=== PATIENT | male | born 1945 | race Caucasian/White ===

== ENCOUNTER → 2019-07-20 | Outpatient (CLI) | payer OTHER ==
[~2019-07-20] MED LIST: AMITIZA 24 MCG24 MCG PO; CELEBREX400 MG PO; ERYTHROMYCIN E3.5 G1 OPHTHALMIC; GLUCOPHAGE1000 MG PO; HUMIRA20 MG/0.4; NEXIUM20 M1; ZOCOR 10 MG TAB10 MG PO
== END ==
LOC: ULTRA 12:06
DX: R22.43 Localized swelling, mass and lump, lower limb, bilateral (principal)

== ENCOUNTER 2020-01-11 17:44 | Inpatient (IN) | payer OTHER ==
[~2020-01-11] VITALS: Ht 177.8 cm; Wt 84.4 kg
[2020-01-11 17:51] VITALS: BP 112/66
[2020-01-11 18:41] LABS: URINE BILIRUBIN NEGATIVE (Negative); URINE BLOOD 3+ (Negative); URINE CLARITY CLOUDY; URINE COLOR YELLOW; URINE GLUCOSE-RANDOM* NEGATIVE (Negative); URINE KETONES TRACE (Negative); URINE NITRITE-REFLEX NEGATIVE (Negative); URINE PROTEIN (DIPSTICK) 2+ (Negative); URINE SPECIFIC GRAVITY 1.025 (1.005-1.035)
[2020-01-11 18:42] LABS: HEMATOCRIT 35.5 % (42.0-52.0); HEMOGLOBIN 12.2 gm/dL (14.0-18.0); MCH 33.2 pg (26.0-34.0); MCHC 34.4 g/dL (28.0-37.0); MCV 96.5 fL (80.0-100.0); PLATELET COUNT 215 thou/uL (150-400); RBC 3.68 mil/uL (4.50-6.00); RDW 13.3 % (10.5-14.5); WBC 7.5 thou/uL (4.0-11.0)
[2020-01-11 18:46] LABS: URINE LEUKOCYTES-REFLEX 2+ (Negative)
[2020-01-11 18:49] LABS: CALCIUM 8.5 mg/dL (8.5-10.1); CREATININE 1.1 mg/dL (0.7-1.3); POTASSIUM 5.1 mmol/L (3.5-5.1)
[2020-01-11 18:54] LABS: ALBUMIN 2.3 g/dL (3.4-5.0); TOTAL BILIRUBIN 0.6 mg/dL (0.2-1.0); TOTAL PROTEIN 6.5 g/dL (6.4-8.2)
[2020-01-11 19:07] LABS: PLATELET ESTIMATE NORMAL
[2020-01-11 19:10] LABS: BACTERIA-REFLEX >30 Many /HPF (None Seen); CASTS None Seen /LPF (None Seen); CRYSTALS None Seen /LPF (None Seen); SQUAMOUS 0-3 Few /LPF (0-3); URINE RBC 3-10 Few /HPF (0-2); URINE WBC-REFLEX >25 Many /HPF (0-5)
[2020-01-11] MEDS ORDERED: NORVASC5 MG PO (19:46)
[2020-01-11] MEDS ORDERED: NEURONTIN 300M300 M2 PO (19:46)
[2020-01-11] MEDS ORDERED: TAMSULOSIN HCL0.4 MG PO (19:46)
[2020-01-11] MEDS ORDERED: LINZESS145 MCG PO (19:46)
[2020-01-11] MEDS ORDERED: TRESIBA FL100 UNIT/1 (19:47)
[2020-01-11] MEDS ORDERED: PROTONIX40 M2 PO (19:47)
[2020-01-11] MEDS ORDERED: TRADJENTA5 MG (19:47)
[2020-01-11] MEDS ORDERED: TRAZODONE HCL100 MG PO (19:48)
[2020-01-11] MEDS ORDERED: PRAVACHOL 20 MG20 M1 PO (19:48)
[2020-01-11 20:45] VITALS: BP 131/65
[2020-01-11 21:57] VITALS: BP 129/62
[2020-01-11 23:59] VITALS: BP 125/55
--- NOTE | 2020-01-12 00:29 | NUR ---
ADMISSION ASSESSMENT COMPLETED. PT IS ABLE TO ANSWER ADMISSION QUESTIONS. C/O PAIN TO FEET AND PENIS. CATHETER HAS BLOOD TINGED URINE. PT DENIES SOA OR COUGH.L OUTER ANKLE SURGICAL INCISION SITE WITH [id number]-ON S/SX OF INFECTION AT THE SITE.FALL EDUCATION PROVIDED, PRECAUTIONS IN PLACE, CALL LIGHT WITHIN REACH.
[2020-01-12 04:47] VITALS: BP 128/71
--- NOTE | 2020-01-12 06:36 | NUR ---
I AGREE ON THE DOCUMENTATION DONE BY Mayur EASLEY LPN
[2020-01-12 07:20] VITALS: BP 95/35
[2020-01-12 07:40] VITALS: BP 114/69
--- NOTE | 2020-01-12 12:06 | HC ---
[facility] [place] [address] CONSULTATION Name: LAWSON LAM Room #: 434-P ADM IN ..#: [id number] Admission: 01/11/20 Attend Phys: Alexandro Godinez MD Discharge: Date of : 47 Report #: [id number] THIS REPORT FOR: cc: Mehrdad Izaguirre Gerald F. DO Barry, Joseph W. MD ~ DATE OF SERVICE: 01/12/2020 INFECTIOUS DISEASE CONSULTATION ATTENDING PHYSICIAN: Dr. Godinez. REASON FOR EVALUATION: Complicated urinary tract infection. HISTORY OF SUBJECTIVE: Chart reviewed, patient examined. This is a 74-year-old gentleman who was admitted through the Emergency Room with complaints of pain associated with the indwelling Yoon catheter, history starts roughly 2-3 weeks ago, had sustained a fall, described a left distal tib-fib fracture, underwent repair. Postop course, he was having difficulty voiding and a urine catheter was placed. He was found to have urinary tract infection, treated with ceftriaxone I believe and then transition to cephalexin. He was discharged and readmitted. He does have ongoing pain, although he is fairly animated. He denies any pulmonary complaints or GI. He admits to chills, although he is not certain he had fevers. I evaluated and noted urinalysis with greater than 25 white cells, greater than 30 bacteria. Empirically placed on ceftriaxone, awaiting culture results. ALLERGIES: LISTED TO PROPOXYPHENE, IODINE, CODEINE, ACETAMINOPHEN. CURRENT MEDICATIONS: Include ceftriaxone, trazodone, amlodipine, atorvastatin, gabapentin, tamsulosin, insulin, famotidine, enoxaparin, p.r.n. analgesics and antiemetics. PAST MEDICAL HISTORY: Includes diabetes mellitus, history of hypertension, hyperlipidemia, history of chronic pancreatitis, ETOH abuse, reflux, chronic back pain, seizures, spinal stenosis. SOCIAL HISTORY: Former smoker. No illicit drug use. FAMILY HISTORY: Noncontributory. REVIEW OF SYSTEMS: Otherwise, unremarkable. PHYSICAL EXAMINATION: [facility] [address] [place] [address] CONSULTATION Name: LAWSON LAM Room #: 434-P [facility] IN ..#: [id number] Admission: 01/11/20 Attend Phys: Alexandro Godinez MD Discharge: Date of : 47 Report #: [id number] GENERAL: He is animated, alert, cooperative, in [id number]-mb-fcyfwhie distress at times, appears to be reasonably well nourished. VITAL SIGNS: Temperature 97.8, pulse 78, respirations 18, blood pressure 114/69. SKIN: Warm, dry, no rashes. HEENT: Otherwise, unremarkable. NECK: Supple. LUNGS: Clear to auscultation bilaterally. HEART: Regular. I do not appreciate murmur. ABDOMEN: Mildly distended, soft. There is some tenderness initially, although on repeat, he denied any. He notes there is tenderness over the perineal site. GENITOURINARY AND RECTAL: Deferred. LABORATORY DATA: Electrolytes: Sodium 135, potassium 5.1, chloride 102, bicarbonate 24, anion gap of 9, BUN and creatinine 15 and 1.1, glucose of 184, SGOT of 72, SGPT of 30. Albumin of 2.3. Total protein 6.5. Estimated GFR 66. Otherwise, LFTs unremarkable. CBC: White count of 7.5, H and H 12.2 and 35.5, platelets of 215. Urinalysis described above. ASSESSMENT AND PLAN: Complicated urinary tract infection. The patient apparently requires indwelling catheter due to inability to void. We will await culture results. Ceftriaxone seems reasonable given the fact that he has been on it previously and seemed to respond to it based on the history. We will make 1 transition ideally perhaps to oral antibiotics in the next 2-3 days. At this point, he is not overtly toxic, monitor expectantly. Add incentive spirometry. <ELECTRONICALLY SIGNED> By: Johnathan Schuster MD 01/12/20 1206 [id number] Johnathan Schuster MD /nt
[2020-01-12 14:47] VITALS: BP 107/61; BP 173/87
--- NOTE | 2020-01-12 17:33 | NUR ---
Assumed care of pt. at 0700. Pt. was calm and cooperative. Dr. Godinez requested that the neal catheter be removed. Pt. was concered that he could not urinate 3 hours after removal. Bladder scan conducted, 92mL seen. Pt. calmed. Fall precautions in place.
[2020-01-12 22:35] VITALS: BP 136/72
--- NOTE | 2020-01-12 23:51 | NUR ---
ASSUMED PT CARE AT AROUND 2000 HRS. PT IS ALERT AND ORIENTED WITH FORGETFULNESS AND SOME CONFUSION. OBSERVED IN BED.PT DENIES PAIN.HS MEDS GIVEN. AFEBRILE. IVF RESTARTED TO L HAND.PT SO FAR HAS NOT VOIDED. BLADDER SCAN AT 2300 WITH 376 CC. URINAL PROVIDED WELL PITCHER OF FRESH WATER. WILL GIVE PATIENT TIME AND CHANCE TO VOID. PT DENIES ANY URGE TO URINATE OR ANY DISCOMFORT IN GENERAL.REPORT GIVEN TO LYRIC MACIAS @6306 HRS.
--- NOTE | 2020-01-13 06:28 | NUR ---
ASSUMED PT CARE AFTER 2300. PT RESTING IN BED AT THAT TIME WITHOUT INTERRUPTION OR OBSERVATION OF PAIN, DISCOMFORT, OR SOB. PT AWAKENED FOR TOILETING NEEDS, OBSERVED WITHOUT GOWN PER PREFERENCE TO BE NAKED. PT AMBULATES WITH LLE BOOT, WALKER, AND X1 ASSIST TO BEDSIDE COMMODE. PT OBSERVED WITHOUT IV ACCESS AT TIME OF TOILETING. PT REPORTS REMOVING IV DUE TO URGENCY TO USE BATHROOM. PT REQUESTING TO DISCONTINUE IV SITE AND IV MEDICATIONS, PROVIDED REASSURANCE TO PT THAT REQUEST WILL BE COMMUNICATED TO DOCTOR FOR DETERMINATION OF MEDICATION PROFILE. PT REFUSING NEW IV SITE PLACEMENT. PT TOLERATING PO INTAKE OF FLUIDS AND HEART HEALTHY DIET WITHOUT ISSUE. PT ENCOURAGED TO NOTIFY STAFF FOR ALL NEEDS, CALL LIGHT WITHIN REACH, BED ALARM ON, BED IN LOWEST POSITION, FREQUENT MONITORING WILL CONTINUE.
[2020-01-13 08:11] VITALS: BP 149/81
--- NOTE | 2020-01-13 09:03 | NUR ---
[facility] contacted me thismorning to let CM know that they cannot accept him back into their care because he needs a higher level of care now.
--- NOTE | 2020-01-13 13:40 | NUR ---
Nutrition: Pt admit with UTI, pain. RD received consult stating malnutrition-physician diagnosed-will defer. Initial risk for poor intake, weight loss. PMH: Dm, HTN, ETOH. galley worker consult for possible need for placement/frequent falls. Tolerating diet although not happy with some choices. RD obtained food preferences and instructed on ordering meals. Pt was happy for this option. Reports 100% intake of breakfast this am but lunch was "too fancy". BG 98-228. Hx DM. Pt would like to D/C heart healthy diet restriction-defer to physician discretion but would rec adding Carb controlled to assist with BG control. Pt denies weight loss stating current weight is UBW. Offer ensure daily due to suboptimal intake at times/hx ETOH. Low risk otherwise.
--- NOTE | 2020-01-13 14:21 | NUR ---
TRIED TO REACH PT BY PHONE NO ANSWER & TRIED CALLING BRITTANY OTOOLE & LEFT MESSAGE FOR HER TO CALL, BUT OF THIS WRITING NO RETURN CALL. PT USING A CAM WALKER & FRONT WHEELED WALKER, WALKED 60 FEET WITH THERAPY THIS AM. PER NURSING THEY RECEIVED A CALL FROM [facility] THIS AM & THEY WILL NOT ACCEPT PT BACK.
--- NOTE | 2020-01-13 15:07 | NUR ---
Assumed care of pt. at 0700. Per night nurse Reny MACIAS, pt. removed IV overnight and refused to have one reinserted. Dr. Godinez alerted and said it was okay to leave it out. Pt. was able to void but was found to have >276mL post void via bladder scan. Dr. Godinez ordered neal be placed. Once inserted, 1500 mL of urine filled neal bag. Redness around groin area noted, Dr. Godinez ordered nyastatin powder be used BID. Fall precautions in place.
[2020-01-13 16:03] VITALS: BP 115/65
[2020-01-13 19:30] VITALS: BP 120/72
[2020-01-13 22:32] VITALS: BP 120/72
[2020-01-14 07:50] VITALS: BP 111/56
--- NOTE | 2020-01-14 08:58 | NUR ---
PT AOX4 WITH INTERMITTENT FORGETFULNESS. PT DENIES PAIN AND SOB WHILE ON ROOM AIR. PT HAS PRN PO TRAMADOL AVAILABLE. PT DENIES NAUSEA. PT TOLERATING PO INTAKE OF FLUIDS AND HEART HEALTHY DIET. PT RESTING IN BED THROUGHOUT SHIFT, NOTED TO SHIFT INDEPENDENTLY WHILE IN BED. PT MAINTAINS GONZALEZ CATHETER, CATHETER PATENT. PT ENCOURAGED TO NOTIFY STAFF FOR ALL NEEDS, CALL LIGHT WITHIN REACH, BED ALARM ON, BED IN LOWEST POSITION, FREQUENT MONITORING WILL CONTINUE.
[2020-01-14 15:13] VITALS: BP 117/65
--- NOTE | 2020-01-14 15:20 | NUR ---
Assumed care of pt. at 0700. Pt. is calm and cooperative. Pt. complained of being constipated, Dr. Godinez ordered Mag Citrate and it was given. No results yielded from Mg. Was alerted by CM that [facility] will not accept him back d/t his noncompliance of care given his last time with them, he reportedly refuse to comply and threw away given medications. Fall precautions in place.
[2020-01-14 19:13] VITALS: BP 119/65
--- NOTE | 2020-01-15 02:57 | NUR ---
PT WAS OBSRVED TO BE NAKED ON HIS BED AT THE START OF SHIFT.PT STATED THAT HE DOESN'T WANT TO PUT HIS GOWN BACK ON WHEN ENCOURAGED TO DO SO.PT STATED THAT HE WOULD PREFER THE COVERS WHILE IN BED.PT DENIED PAIN,N/V SO FAR.GONZALEZ CATH TO DD WITH YELLOW URINE NOTED IN THE BAG.PER REPORT,PT WITH NO IV ACCESS.NYSTAINN POWDER TO THE REDNESS IN HIS PANNUS.PT ENCOURAGED TO USE THE INCENTIVE SPIROMETER.EDEMA TO HIS MICKY ANKELS,L GREATER THAT THE R.LLE SUTEURES INTACT WITH STERI STRIPS.PT RESTING ON HIS BED AT THIS TIME.CALL LIGHT WITHIN REACH.
[2020-01-15 06:51] VITALS: BP 144/85
[2020-01-15] MEDS ORDERED: LEVOFLOXACIN500 MG PO (09:03)
--- NOTE | 2020-01-15 11:36 | NUR ---
Assumed care of pt at 0700. Pt follows directions. Provider states pt can go home. Previous home health agency will not take patient back. Talked to director case. New home health agency can see pt on tuesday 01/16. Will call doctor and to ask if ok to discharge patient today. Pt will discharge with Yoon catheter. Pt states he has a ride. Call light within reach. Fall precautions in place. Will continue to monitor.
[2020-01-15 15:40] VITALS: BP 130/71
[2020-01-15 15:58] VITALS: BP 130/71
--- NOTE | 2020-01-16 03:05 | NUR ---
PT DISCHARGED AT 2039 TO HOME VIA WHEELCHAIR VAN.
--- NOTE | 2020-01-16 12:38 | NUR ---
PT DISCHARGED TO HOME WITH HH OVER WEEKEND FAXED REFERRAL TO [facility] SPOKE WITH [facility] THEY CAN ACCEPT. FAXED DC ORDERS/SUMMARY RECEIVED CONFIRMATION AND THEY WILL CALL TO ARRANGE VISITS. I NOTIFIED PT WITH INFORMATION ABOUT THE HH THAT WILL BE CALLING.
== END 2020-01-15 20:40 | disposition home health service (06) | DRG 698 ==
LOC: ER 17:44 → EROBS 19:59 → 4S 19:59
PROVIDERS: Emergency Medicine; ADMIT Hospitalist; ATTEND Hospitalist
DX: T83.518A Infection and inflammatory reaction due to other urinary catheter, initial encounter (principal); E43 Unspecified severe protein-calorie malnutrition; N39.0 Urinary tract infection, site not specified; E46 Unspecified protein-calorie malnutrition; K86.0 Alcohol-induced chronic pancreatitis; R62.7 Adult failure to thrive; F41.9 Anxiety disorder, unspecified; K58.9 Irritable bowel syndrome, unspecified; F10.21 Alcohol dependence, in remission; E78.5 Hyperlipidemia, unspecified; K21.9 Gastro-esophageal reflux disease without esophagitis; G89.29 Other chronic pain; G40.909 Epilepsy, unspecified, not intractable, without status epilepticus; I10 Essential (primary) hypertension; E11.9 Type 2 diabetes mellitus without complications; Y83.8 Other surgical procedures as the cause of abnormal reaction of the patient, or of later complication, without mention of misadventure at the time of the procedure; B96.20 Unspecified Escherichia coli [E. coli] as the cause of diseases classified elsewhere; Y92.89 Other specified places as the place of occurrence of the external cause; Z87.891 Personal history of nicotine dependence; Z79.4 Long term (current) use of insulin; Z79.899 Other long term (current) drug therapy; Z88.5 Allergy status to narcotic agent; Z88.8 Allergy status to other drugs, medicaments and biological substances; Z91.041 Radiographic dye allergy status; Z68.26 Body mass index [BMI] 26.0-26.9, adult
CPT/HCPCS: 10102

== ENCOUNTER 2020-01-24 11:50 | Observation (INO) | payer OTHER ==
[~2020-01-24] VITALS: Ht 177.8 cm; Wt 79.8 kg
[~2020-01-24 11:50] MED LIST changes: +LEVOFLOXACIN500 MG PO; +LINZESS145 MCG PO; +NEURONTIN 300M300 M2 PO; +NORVASC5 MG PO; +PRAVACHOL 20 MG20 M1 PO; +PROTONIX40 M2 PO; +TAMSULOSIN HCL0.4 MG PO; +TRADJENTA5 MG; +TRAZODONE HCL100 MG PO; +TRESIBA FL100 UNIT/1
[2020-01-24 11:51] VITALS: BP 113/62
--- NOTE | 2020-01-24 12:43 | EKG ---
[facility] [place] [place] [address] ELECTROCARDIOGRAM REPORT Name: LAWSON LAM Room #: [facility]#: [id number] Admission: 01/24/20 Attend Phys: Discharge: Date of : 47 Report #: [id number] THIS REPORT FOR: cc: NIHARIKA Schultz family physician/PCP NIHARIKA Schultz family physician/PCP Jerome Hensley MD [facility] ~ THIS REPORT FOR: //name// [facility] ED Test Date: 2020-01-24 Test Time: 12:00:47 Pat Name: LAWSON LAM Department: Room: Gender: M Easement Worker: ROQUE : 1945 Requested By: Fredrick Sylvester Order Number: [id number] MD: Jerome Hensley Measurements Intervals [place] Rate: 83 P: -1 [place]: 202 QRS: -14 QRSD: 101 T: 33 QT: 377 QTc: 443 Interpretive Statements Sinus rhythm Abnormal R-wave progression, early transition 1 AVB Compared to ECG 07/03/2005 22:40:11 Sinus bradycardia no longer present Electronically Signed On 01-24-2020 12:43:05 EXHAUST EMISSIONS INSPECTOR by Jerome Hensley [email or web address] <ELECTRONICALLY SIGNED> By: Jerome Hensley MD, FACC 01/24/20 1243 1200 1200 Jerome Hensley MD, [facility] /EPI
[2020-01-24 13:32] LABS: HEMATOCRIT 41.7 % (42.0-52.0); HEMOGLOBIN 13.6 gm/dL (14.0-18.0); MCH 32.2 pg (26.0-34.0); MCHC 32.6 g/dL (28.0-37.0); MCV 98.7 fL (80.0-100.0); PLATELET COUNT 211 thou/uL (150-400); RBC 4.23 mil/uL (4.50-6.00); RDW 14.1 % (10.5-14.5); WBC 9.1 thou/uL (4.0-11.0)
[2020-01-24 14:12] LABS: ABSOLUTE NEUTROPHILS 6.6 thou/uL (1.4-8.2); PLATELET ESTIMATE NORMAL
[2020-01-24 15:09] LABS: ANION GAP 9 mmol/L (7-16); BUN 9 mg/dL (7-18); CHLORIDE 102 mmol/L (98-107); CO2 25 mmol/L (21-32); CREATININE 1.3 mg/dL (0.7-1.3); GLUCOSE 169 mg/dL (74-106); POTASSIUM 4.3 mmol/L (3.5-5.1); SODIUM 136 mmol/L (136-145); TROPONIN-I <0.06 ng/mL (<0.06)
[2020-01-24 15:13] LABS: CALCIUM 9.8 mg/dL (8.5-10.1)
[2020-01-24 16:56] LABS: CHOLESTEROL 131 mg/dL (<200); HDL CHOLESTEROL 41 mg/dL (>40); LDL CHOLESTEROL 71 mg/dL (<100); TC:HDL 3.2 Ratio (Not establshd); TRIGLYCERIDE 96 mg/dL (<150); VLDL 19 mg/dL (<40)
[2020-01-24 17:09] VITALS: BP 111/62
[2020-01-24 17:38] VITALS: BP 96/68
[2020-01-24 17:59] VITALS: BP 120/58
[2020-01-24 21:15] VITALS: BP 141/65
[2020-01-25] VITALS (8 sets, daily range): BP systolic 93–125; BP diastolic 52–73
[2020-01-25 04:48] LABS: CALCIUM 8.7 mg/dL (8.5-10.1); CREATININE 1.2 mg/dL (0.7-1.3); MAGNESIUM 1.8 mg/dL (1.8-2.4); POTASSIUM 3.8 mmol/L (3.5-5.1)
[2020-01-25 04:55] LABS: HEMATOCRIT 36.8 % (42.0-52.0); HEMOGLOBIN 12.1 gm/dL (14.0-18.0); MCH 32.1 pg (26.0-34.0); MCHC 32.9 g/dL (28.0-37.0); MCV 97.7 fL (80.0-100.0); PLATELET COUNT 217 thou/uL (150-400); RBC 3.77 mil/uL (4.50-6.00); RDW 13.8 % (10.5-14.5); WBC 6.9 thou/uL (4.0-11.0)
--- NOTE | 2020-01-25 06:21 | NUR ---
PATIENT IS COOPERATIVE BUT FORGETFUL AND A LITTLE CONFUSED AT TIMES. PATIENT CAN ANSWER MOST QUESTIONS APPROPRIATELY HOWEVER HAS TROUBLE REMEMBERING HE IS IN THE HOSPITAL. PATIENT IS VERY UNSTEADY ON FEET AND GRABS FOR FURNITURE. PATIENT'S LEG BAG REPLAED BY A FULL SIZE GONZALEZ BAG. NO SKIN WOUNDS NOTED.
[2020-01-25 10:24] LABS: ABSOLUTE NEUTROPHILS 3.2 thou/uL (1.4-8.2); ATYPICAL LYMPHS 3 %
[2020-01-25 10:25] LABS: ANISOCYTOSIS SLIGHT; POIKILOCYTOSIS SLIGHT
--- NOTE | 2020-01-25 12:56 | NUR ---
I have reviewed the documentation by KELECHI DIAZ from 01/25/20 to 01/25/20 and I concur with it. BETTY GODDARD, PT, DPT
--- NOTE | 2020-01-25 13:10 | 2DMMODE ---
[facility] [place] [address] 2 D/M-MODE ECHOCARDIOGRAM Name: LAWSON LAM Room #: 210-P ADM IN M.R.#: [id number] Admission: 01/24/20 Attend Phys: Fabrizio Yung MD Discharge: Date of : 46 Report #: [id number] THIS REPORT FOR: cc: FAM - No family physician/PCP FAM - No family physician/PCP Jerome Hensley MD [facility] ~ APPROVED REPORT Study performed: 01/25/2020 10:49:06 EXAM: Comprehensive 2D, Doppler, and color-flow Echocardiogram Patient Location: Bedside Room #: 210 Status: routine BSA: 1.98 HR: 74 bpm BP: 120/52 mmHg Rhythm: NSR Other Information Study Quality: Good Indications Diabetes Syncope Hypertension/HDD 2D Dimensions RVDd: 30.87 mm IVSd: 10.35 (7-11mm) LVOT Diam: 21.94 (18-24mm) LVDd: 48.48 mm PWd: 9.51 (7-11mm) Ascending Ao: 35.89 (22-36mm) LVDs: 38.37 (25-40mm) Aortic Root: 27.38 mm Volumes Left Atrial Volume (Systole) Single Plane 4CH: 30.19 mL Single Plane 2CH: 39.80 mL LA ESV Index: 19.00 mL/m2 Aortic Valve AoV Peak Koffi.: 1.12 m/s AO Peak Gr.: 5.03 mmHg LVOT Max P.38 mmHg LVOT Max V: 0.92 m/s [facility] [email or web address] [place] [address] 2 D/M-MODE ECHOCARDIOGRAM Name: LAWSON LAM Room #: 210-P ADM IN M.R.#: [id number] Admission: 01/24/20 Attend Phys: Fabrizio Yung MD Discharge: Date of : 47 Report #: [id number] COSME Vmax: 3.10 cm2 Mitral Valve E/A Ratio: 0.8 MV Decel. Time: 310.47 ms MV E Max Koffi.: 0.64 m/s MV A Koffi.: 0.80 m/s MV PHT: 90.04 ms IVRT: 106.11 ms Pulmonary Valve PV Peak Koffi.: 1.20 m/s PV Peak Gr.: 5.73 mmHg Pulmonary Vein P Vein S: 0.49 m/s P Vein A: 0.23 m/s P Vein D: 0.30 m/s P Vein A Dur.: 179.9 msec P Vein S/D Ratio: 1.63 Tricuspid Valve TR Peak Koffi.: 2.27 m/s TR Peak Gr.: 20.55 mmHg PA Pressure: 20.00 mmHg Left Ventricle The left ventricle is normal size. There is normal LV segmental wall motion. There is normal left ventricular wall thickness. The left ventricular systolic function is normal. The left ventricular ejection fraction is within the normal range. LVEF is 55-60%. Grade I - abnormal relaxation pattern. Right Ventricle The right ventricle is normal size. The right ventricular systolic function is normal. Atria The left atrium size is normal. The right atrium size is normal. Aortic Valve The aortic valve is normal in structure. No aortic regurgitation is present. There is no aortic valvular stenosis. Mitral Valve The mitral valve is normal in structure. Trace mitral regurgitation. No evidence of mitral valve stenosis. [facility] [address] [place] [address] 2 D/M-MODE ECHOCARDIOGRAM Name: LAWSON LAM Room #: 210-P ADM IN M.R.#: [id number] Admission: 01/24/20 Attend Phys: Fabrizio Yung MD Discharge: Date of : 47 Report #: [id number] Tricuspid Valve The tricuspid valve is normal in structure. There is trace to mild tricuspid regurgitation. Estimated PAP 20 mmHg. Plus the right atrial pressure. There is no pulmonary hypertension. Pulmonic Valve The pulmonary valve is normal in structure. There is no pulmonic valvular regurgitation. Great Vessels The aortic root is normal in size. IVC is not well visualized. Pericardium There is no pericardial effusion. <Conclusion> Difficult study Normal left ventricular size and thickness Ejection fraction estimated at 55% Grade 1 diastolic dysfunction Normal right ventricular size and function Normal atrial size Normal aortic valve structure and function Trace mitral valve insufficiency Trace tricuspid valve insufficiency PA pressure systolic estimated 20 mmHg No pericardial effusion <ELECTRONICALLY SIGNED> By: Jerome Hensley MD, FACC 01/25/201309 09 09 Jerome Hensley MD, FACC /INF
--- NOTE | 2020-01-25 17:57 | NUR ---
Case opened to follow for dc planning. Pt is a&ox4 but slow to respond at times. He indicates that he went out to the Urology office regarding his neal and urinary retention and had syncopal episode. He has been recieving HH since his dc on 01/15/20 but he can not recall the agency name. He had [facility] in the past but they could not accept him back. Per pt request, message left for his girlfriend Mariajose requesting she look at his HH folder to get the agency name. He has a cam walker at home. His girlfriend is very involved and supportive. She does work but is available after hours. He denies any other dc need or concerns. Will follow along for resumption of hh at dc.
--- NOTE | 2020-01-25 18:25 | NUR ---
PT ALERT AND ORIENTED. PLEASANT AND COOPERATIVE WITH CARES. HAD NUC STRESS TEST THIS SHIFT. DENIED HAVING PAIN OR DISCOMFORT. NO CONCERNS AT THIS TIME.
[2020-01-26 04:48] VITALS: BP 118/72
[2020-01-26 07:46] VITALS: BP 128/65; BP 146/74; BP 98/60
--- NOTE | 2020-01-26 10:35 | NUR ---
WOUND CONSULT; ALERT, COOPERATIVE, STATES ULCER ON L HEEL HAS BEEN THERE A "FEW WEEKS" DRY BROWN ESCHAR, NO DRAINAGE, NO S/S INFECTION, TRACE EDEMA, FEET WARM, PLANNING DC TODAY W/ HOME HEALTH SERVICES, REVIEWED CARE, WILL ORDER PRAFO BOOTS PRIOR TO DC AND TO F/U W/ WOUND DR BRANDY STARK IF NOT IMPROVING, PHONE # GIVEN TO PT RECOMMENDATIONS; PRAFO BOOTS WHEN IN BED, PRESSURE RELIEF, WEAR SHOES LITTLE POSSIBLE, PAINT ULCER W/ BETADINE DAILY , F/U W/ WOUND IF NO IMPROVEMENT SEEN CONVEYOR CONSOLE OPERATOR AWARE
[2020-01-26 10:39] VITALS: BP 117/64
--- NOTE | 2020-01-26 10:40 | NUR ---
Pt dcing home today with HH orders. DC planning confirming that [facility] is the current provider and that they can accept him back for readmission. [facility] declined him at last dc in December due to concerns that he needs more care and help at home. Will ask [facility] to add an CURRICULUM DESIGNER visit to their orders and encourage the pt/ girlfriend to consider private duty or HBCS request [place]icaid.
--- NOTE | 2020-01-26 10:42 | NUR ---
WOUND CARE ADDENDUM; L HEEL ULCER MEASURES 2CM X 2CM, NO DRAINAGE, NO S/S INFECION, DRY BROWN ESCHAR PERSONAL BANKER AWARE
[2020-01-26 10:43] VITALS: BP 117/64
--- NOTE | 2020-01-26 11:13 | NUR ---
FAXED REFERRAL TO [facility] FOR RESUMPTION OF CARE AT DISCHARGE SPOKE WITH [facility] IN INTAKE THEY WILL RESUME CARE PT TO DC TODAY.
[2020-01-26 11:25] VITALS: BP 105/81
[2020-01-26 11:57] VITALS: BP 117/64
--- NOTE | 2020-01-26 16:17 | NUR ---
I have reviewed the documentation by MAURA ROBERT from 01/26/20 to 01/26/20 and I concur with it. TARYN SAUNDERS
--- NOTE | 2020-01-26 16:46 | NUR ---
PT WAS EDUCATED ON DISCHARGE PAPERWORK, REGARDING FOLLOW UP APPOINTMENTS. PT FRIEND WAS ALSO PRESENT DURING EDUCATION. PT UNDERSTANDS THE NEED TO FOLLOW UP WITH CARDIOLOGY, UROLOGY, AND HIS HCP. PT ALSO RECEIVED INFORMATION REGARDING WOUND CARE AND FOLLOW UP FOR L HEEL WOUND. ANIA IGLESIAS SENT HOME WITH PT. PRIMARY PHYSICIAN LIST ATTACHED TO PAPERWORK PER PT REQUEST.
== END 2020-01-26 16:50 | disposition home health service, planned readmission (86) ==
LOC: ER 11:50 → 2N 15:42 → EROBS 15:42 → 2N 15:42 → EROBS 16:01 → 2N 17:48
PROVIDERS: Nurse Practitioner; ADMIT Internal Medicine; ATTEND Internal Medicine
DX: R55 Syncope and collapse (principal); I10 Essential (primary) hypertension; E78.5 Hyperlipidemia, unspecified; E11.9 Type 2 diabetes mellitus without complications; G40.909 Epilepsy, unspecified, not intractable, without status epilepticus; K21.9 Gastro-esophageal reflux disease without esophagitis; M48.00 Spinal stenosis, site unspecified; N39.0 Urinary tract infection, site not specified; K58.9 Irritable bowel syndrome, unspecified; F17.210 Nicotine dependence, cigarettes, uncomplicated; R33.9 Retention of urine, unspecified; R53.81 Other malaise; Z20.828 Contact with and (suspected) exposure to other viral communicable diseases; Z98.890 Other specified postprocedural states
CPT/HCPCS: 10081

== ENCOUNTER 2020-05-29 14:46 | Inpatient (IN) | payer OTHER ==
[~2020-05-29] VITALS: Ht 177.8 cm; Wt 82.5 kg
--- NOTE | ~2020-05-29 | HC ---
[facility] [place] [address] CONSULTATION Name: LAWSON LAM Room #: 447-P [facility] IN ..#: [id number] Admission: 05/29/20 Attend Phys: Hesham Castanon MD Discharge: Date of : 47 Report #: [id number] THIS REPORT FOR: cc: Mehrdad Izaguirre Gerald F. DO Stephens, Thad A. MD ~ DATE OF SERVICE: 05/30/2020 WOUND CARE CONSULTATION PRIMARY PHYSICIAN: Mehrdad Izaguirre DO. CHIEF COMPLAINT: Diabetic foot ulcer. HISTORY OF PRESENT ILLNESS: This is a 75-year-old white male who I saw in clinic yesterday as a new patient for a chronic ulceration on the plantar aspect of his right foot. The patient states it has been present for at least 3 weeks and getting progressively worse. The patient started having purulent drainage in the past week, he saw Dr. Izaguirre who requested he be admitted; however, at that time, the patient refused. The patient when seen yesterday in the clinic, I had a long talk about infection progressed, he might require amputation. At that time, he decided he will go ahead and be admitted for IV antibiotics and further workup. The patient has significant neuropathy in his feet and says he has minimal pain. The patient denies any other associated wounds. The patient has had a longstanding history of Charcot arthropathy. The patient also is currently on Enbrel for his rheumatoid arthritis. PAST MEDICAL HISTORY: Significant for rheumatoid arthritis, history of pancreatitis, hyperlipidemia, diabetes mellitus, hypertension, irritable bowel syndrome, anxiety. DRUG ALLERGIES: DARVOCET. SOCIAL HISTORY: The patient has no history of smoking; however, has a history of alcohol, supposedly significant alcohol use in the past. REVIEW OF SYSTEMS: CONSTITUTIONAL: The patient denies fevers or chills. NEUROLOGIC: The patient complains of mild generalized weakness, but no isolated weakness in arms or legs. EYES: No complaints. ENT: No complaints. CARDIAC: The patient denies chest pain, palpitations, peripheral edema. RESPIRATORY: The patient denies shortness of breath, cough or wheezes. GASTROINTESTINAL: The patient denies nausea, vomiting, abdominal pain. [facility] [address] [place] [address] CONSULTATION Name: LAWSON LAM Room #: 447-P [facility] IN [facility].#: [id number] Admission: 05/29/20 Attend Phys: Hesham Castanon MD Discharge: Date of : 47 Report #: [id number] GENITOURINARY: The patient denies urgency or frequency. MUSCULOSKELETAL: No complaints. SKIN: The patient has a chronic ulcer on the plantar aspect of his right foot. PHYSICAL EXAMINATION: VITAL SIGNS: Stable. The patient is afebrile. GENERAL: This is an alert and oriented x 3, pleasant white male who is in no obvious distress. HEENT: Normocephalic, atraumatic. Mucous membranes are somewhat dry. Pupils are round. Sclerae white. NECK: Without JVD. LUNGS: Clear. HEART: Regular. ABDOMEN: Soft, nontender. EXTREMITIES: The patient moves all extremities without difficulty. The patient has 1+ dorsalis pedis and posterior tibial pulses. There is trace edema in bilateral lower extremities. Evaluation of the plantar aspect of right foot reveals what appears to be a chronic ulcer with peripheral callus that probes approximately 1 cm. There is no evidence of any obvious exposed bone or deeper structures. There is foul smelling drainage, which is serosanguineous in nature. There are no signs of any other associated ulcerations. NEUROLOGIC: Cranial nerves 2-12 grossly intact. Motor and sensory grossly intact. LABORATORY DATA: White count 6.7, hemoglobin 13.5. Sed rate 29, BUN 19, creatinine 1.0. C-reactive protein is 31.7. Albumin 3.1. X-ray of the right foot shows a small erosion along the lateral aspect of the distal fifth metatarsal. No other signs of any other acute pathology. IMPRESSION: 1. Chronic ulcer, plantar aspect of right foot with associated cellulitis and soft tissue infection. 2. Diabetes mellitus -- poorly controlled. 3. Protein-calorie malnutrition -- moderate albumin at 3.1. 4. Generalized debility. PLAN: Infectious Disease has been consulted. We will start him on IV antibiotics. I have requested arterial Dopplers to be performed as well as an MRI of the right foot to evaluate for underlying osteomyelitis. Pending the results of the above, further consultation for possible debridement will be [address] [address] CONSULTATION Name: LAWSON LAM Room #: 447-P [facility] IN M.R.#: [id number] Admission: 05/29/20 Attend Phys: Hesham Castanon MD Discharge: Date of : 47 Report #: [id number] warranted. We will continue to follow the patient. We will continue all other current medications. By: [id number] [id number] Omar Shearer MD /nt
[2020-05-29 14:46] VITALS: BP 156/92
[~2020-05-29 14:46] MED LIST changes: -ENBREL50 MG/1 ML SUBQ
[2020-05-29 17:04] LABS: ABSOLUTE NEUTROPHILS 6.4 thou/uL (1.4-8.2); BASOPHILS 0.8 % (0.0-2.0); EOSINOPHILS 2.9 % (0.0-3.0); HEMATOCRIT 44.5 % (42.0-52.0); HEMOGLOBIN 15.3 gm/dL (14.0-18.0); LYMPHOCYTES 17.4 % (24.0-44.0); MCH 32.9 pg (26.0-34.0); MCHC 34.4 g/dL (28.0-37.0); MCV 95.6 fL (80.0-100.0); MONOCYTES 14.5 % (1.0-8.0); PLATELET COUNT 237 thou/uL (150-400); POLYS 64.4 % (36.0-66.0); RBC 4.65 mil/uL (4.50-6.00); RDW 14.8 % (10.5-14.5); WBC 9.9 thou/uL (4.0-11.0)
[2020-05-29 17:15] LABS: CALCIUM 9.9 mg/dL (8.5-10.1); CREATININE 0.9 mg/dL (0.7-1.3); POTASSIUM 4.9 mmol/L (3.5-5.1)
[2020-05-29 17:19] VITALS: BP 156/92
[2020-05-29 17:19] LABS: ALBUMIN 3.1 g/dL (3.4-5.0); TOTAL BILIRUBIN 0.6 mg/dL (0.2-1.0); TOTAL PROTEIN 7.9 g/dL (6.4-8.2)
[2020-05-29 17:38] VITALS: BP 156/92
[2020-05-29] MEDS ORDERED: ENBREL50 MG/1 ML SUBQ (17:42)
[2020-05-29 17:44] VITALS: BP 156/92
[2020-05-29 18:26] VITALS: BP 148/86
[2020-05-29 19:22] VITALS: BP 156/86
[2020-05-30 04:42] VITALS: BP 124/75
[2020-05-30 05:20] LABS: HEMATOCRIT 39.9 % (42.0-52.0); HEMOGLOBIN 13.5 gm/dL (14.0-18.0); MCH 32.5 pg (26.0-34.0); MCHC 33.8 g/dL (28.0-37.0); MCV 96.2 fL (80.0-100.0); RBC 4.15 mil/uL (4.50-6.00); RDW 14.7 % (10.5-14.5); WBC 6.7 thou/uL (4.0-11.0)
--- NOTE | 2020-05-30 05:21 | NUR ---
RECEIVED CARE OF THIS PATIENT AT 1900. PATIENT ALERT AND ORIENTED X4. UP TO BATHROOM WITH SBA. DENIES PAIN. ACCUCHECK WAS 236, RECIEVED 4 UNIT LISPRO INSULIN. SLEPT OFF AND ON DURING NIGHT.
[2020-05-30 06:18] LABS: POTASSIUM 4.5 mmol/L (3.5-5.1)
[2020-05-30 07:05] VITALS: BP 103/72
[2020-05-30 07:30] VITALS: BP 103/72
--- NOTE | 2020-05-30 11:20 | NUR ---
Pt prefers to be called Chaplain Pretty. Admit with right foot wound infection, hx DM, Charcot foot. States appetite is now good. Lives alone and uses [employer] dinners, talent program manager meals plus 3 glucerna shakes. Reports had lost about 22 lb from Nov-Jan with surgeries and hospitalizations. Pt feels bedscale wt 181 lb error, states he has stabilized at 172 lb on home scale for several months now. Not happy with some of meals. Reviewed menu for alternative selection option and will start glucerna shakes bid. Low nutrition risk with appropriate nutrition interventions in place.
--- NOTE | 2020-05-30 14:40 | NUR ---
ASSUMED PT CARE AROUND 0700. PT ALERT X ORIENTED X 4. ON ROOM AIR.IV RT HAND, ANTIBIOTICS GOING. STAND BY ASST. FALL PRECAUTION IN PLACE. CALL LIGHT IN REACH. WILL CALL APPROPRIATELY. MRI FOOT SCHEDULED TODAY AFTERNOON. WORKED WITH PT AND OT.WILL CONTINUE TO MONITOR.
[2020-05-30 15:56] VITALS: BP 118/74
[2020-05-30 19:05] VITALS: BP 122/68
[2020-05-31 05:38] VITALS: BP 119/67
[2020-05-31 07:49] VITALS: BP 121/81
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
--- NOTE | 2020-05-31 15:58 | NUR ---
ASSESSMENT: CM REVIEWED CHART AND SPOKE WITH PATIENT. PT REPORTS THAT HE LIVES IN A HOME ALONE WITH HIS DOGS. PT REPORTS HAVING NO STEPS TO ENTER OR ONCE INSIDE. PT REPORTS TAHT HE HAS A WALK IN BATHTUB. PT REPORTS HE HAS A CANE AND WALKER AT HOME IF NEEDED. PT STATES HE IS CURRENTLY IN SERVICES WITH [facility]. CM CONTACTED [facility] TO VERIFY AND FAXED INFORMATION. THEY WILL ACCEPT HIM BACK ON SERVICES AT DISCHARGE. PT REPORTS HE ALSO HAS A CAREGIVER THAT COMES EVERY M/W/FRI FROM [employer] TO ASSIST HIM NEEDED. PT IS CURRENTLY ON IV ANBX AND AWAITING CULTURES. CM WILL CONTINUE TO FOLLOW TO ASSIST NEEDED.
[2020-05-31 16:49] VITALS: BP 119/70
[2020-05-31 19:30] VITALS: BP 125/82
--- NOTE | 2020-06-01 04:00 | NUR ---
PT ALERT AND ORIENTED. CONTINUES ON IV ABTS AWAITING WOUND CULTURES. PT ANXIOUS ABOUT GOING HOME.EDUCATION PROVIDED.
[2020-06-01 07:40] VITALS: BP 98/53
[2020-06-01 07:50] VITALS: BP 98/53
--- NOTE | 2020-06-01 12:04 | NUR ---
ASSUMED PT CARE AROUND 0720. PT ALERT X ORIENTED X4. ON ROOM AIR. STAND BY ASST. USES URINALS. IV RT HAND, SALINE LOCKED AND ANTIBIOTICS RUNNING.ACCUCHECK, ACHS.NO C/O PAIN. WAITING FOR WOUND CULTURE RESULT. FALL PRECATION IN PLACE. CALL LIGHT IN REACH. WILL CALL APPROPRIATELY. WILL CONTINUE TO MONITOR.
[2020-06-01 15:11] VITALS: BP 98/53
--- NOTE | 2020-06-01 15:31 | NUR ---
ON-GOING ASSESSMENT: CM REVIEWED CHART AND SPOKE WITH ATTENDING. AWAITING CULTURES AND PT REMAINS ON IV ANBX. LIKELY HOME WITH HOME HEALTH OVER THE WEEKEND. FAX DICSHARGE ORDERS AT TIME OF DISCHARGE TO [facility] [phone]. CM NOTIFIED [facility] OF LIKELY WEEKEND DISCHARGE.
[2020-06-01] MEDS ORDERED: DOXYCYCLINE HYC50 MG PO ×2 (16:15→17:36)
[2020-06-01] MEDS ORDERED: NORVASC5 MG PO ×2 (16:19→17:36)
[2020-06-01 17:17] VITALS: BP 98/53
== END 2020-06-01 17:41 | disposition home health service (06) | DRG 638 ==
LOC: ER 14:46 → EROBS 17:09 → 4S 17:09
PROVIDERS: Emergency Medicine; ADMIT Hospitalist; ATTEND Hospitalist
DX: E11.621 Type 2 diabetes mellitus with foot ulcer (principal); E44.0 Moderate protein-calorie malnutrition; L97.319 Non-pressure chronic ulcer of right ankle with unspecified severity; L03.115 Cellulitis of right lower limb; I10 Essential (primary) hypertension; E11.610 Type 2 diabetes mellitus with diabetic neuropathic arthropathy; E78.5 Hyperlipidemia, unspecified; F41.9 Anxiety disorder, unspecified; M06.9 Rheumatoid arthritis, unspecified; R53.81 Other malaise; K58.9 Irritable bowel syndrome, unspecified; Z60.2 Problems related to living alone; S91.301A Unspecified open wound, right foot, initial encounter; R29.6 Repeated falls; K21.9 Gastro-esophageal reflux disease without esophagitis; Z88.8 Allergy status to other drugs, medicaments and biological substances; Z88.6 Allergy status to analgesic agent; Z91.041 Radiographic dye allergy status; Z87.891 Personal history of nicotine dependence; Z68.26 Body mass index [BMI] 26.0-26.9, adult; X58.XXXA Exposure to other specified factors, initial encounter; Y93.89 Activity, other specified; Y92.89 Other specified places as the place of occurrence of the external cause; Y99.8 Other external cause status; Z20.822 Contact with and (suspected) exposure to COVID-19
CPT/HCPCS: 10195

== ENCOUNTER → 2020-05-29 | Outpatient (CLI) | payer OTHER ==
[~2020-05-29] MED LIST changes: +ENBREL50 MG/1 ML SUBQ
== END ==
LOC: HYPER 11:31
PROVIDERS: ATTEND Emergency Medicine
DX: E11.621 Type 2 diabetes mellitus with foot ulcer (principal); L97.512 Non-pressure chronic ulcer of other part of right foot with fat layer exposed; E11.40 Type 2 diabetes mellitus with diabetic neuropathy, unspecified; E11.610 Type 2 diabetes mellitus with diabetic neuropathic arthropathy; L84 Corns and callosities; M54.5 Low back pain; L40.50 Arthropathic psoriasis, unspecified; M19.079 Primary osteoarthritis, unspecified ankle and foot; M51.37 Other intervertebral disc degeneration, lumbosacral region; D69.6 Thrombocytopenia, unspecified; M06.9 Rheumatoid arthritis, unspecified; K58.9 Irritable bowel syndrome, unspecified; J44.9 Chronic obstructive pulmonary disease, unspecified; E78.5 Hyperlipidemia, unspecified; M48.00 Spinal stenosis, site unspecified; K21.9 Gastro-esophageal reflux disease without esophagitis; M10.9 Gout, unspecified; K85.90 Acute pancreatitis without necrosis or infection, unspecified; F41.1 Generalized anxiety disorder; F43.10 Post-traumatic stress disorder, unspecified; F17.290 Nicotine dependence, other tobacco product, uncomplicated; F10.20 Alcohol dependence, uncomplicated; Z79.4 Long term (current) use of insulin; Z79.899 Other long term (current) drug therapy; Z96.641 Presence of right artificial hip joint

== ENCOUNTER → 2020-06-26 | Outpatient (CLI) | payer OTHER ==
[~2020-06-26] MED LIST changes: +DOXYCYCLINE HYC50 MG PO; +ENBREL50 MG/1 ML SUBQ
== END ==
LOC: HYPER 07:48
PROVIDERS: ATTEND Specialist
DX: E11.621 Type 2 diabetes mellitus with foot ulcer (principal); L97.412 Non-pressure chronic ulcer of right heel and midfoot with fat layer exposed; L84 Corns and callosities; L08.9 Local infection of the skin and subcutaneous tissue, unspecified; E11.40 Type 2 diabetes mellitus with diabetic neuropathy, unspecified; E11.610 Type 2 diabetes mellitus with diabetic neuropathic arthropathy; M54.5 Low back pain; L40.50 Arthropathic psoriasis, unspecified; M19.079 Primary osteoarthritis, unspecified ankle and foot; M51.37 Other intervertebral disc degeneration, lumbosacral region; D69.6 Thrombocytopenia, unspecified; M06.9 Rheumatoid arthritis, unspecified; K58.9 Irritable bowel syndrome, unspecified; J44.9 Chronic obstructive pulmonary disease, unspecified; E78.5 Hyperlipidemia, unspecified; M48.00 Spinal stenosis, site unspecified; K21.9 Gastro-esophageal reflux disease without esophagitis; M10.9 Gout, unspecified; K85.90 Acute pancreatitis without necrosis or infection, unspecified; F41.1 Generalized anxiety disorder; F43.10 Post-traumatic stress disorder, unspecified; F17.290 Nicotine dependence, other tobacco product, uncomplicated; F10.20 Alcohol dependence, uncomplicated; Z79.4 Long term (current) use of insulin; Z96.641 Presence of right artificial hip joint

== ENCOUNTER → 2020-07-24 | Outpatient (CLI) | payer OTHER | LOC: HYPER 07:46 | PROVIDERS: ATTEND Specialist | DX: E11.621 Type 2 diabetes mellitus with foot ulcer (principal); L97.412 Non-pressure chronic ulcer of right heel and midfoot with fat layer exposed; L84 Corns and callosities; L08.9 Local infection of the skin and subcutaneous tissue, unspecified; E11.40 Type 2 diabetes mellitus with diabetic neuropathy, unspecified; E11.610 Type 2 diabetes mellitus with diabetic neuropathic arthropathy; L40.50 Arthropathic psoriasis, unspecified; D69.6 Thrombocytopenia, unspecified; J44.9 Chronic obstructive pulmonary disease, unspecified; E78.5 Hyperlipidemia, unspecified; K21.9 Gastro-esophageal reflux disease without esophagitis; K22.70 Barrett's esophagus without dysplasia; M54.5 Low back pain; M19.079 Primary osteoarthritis, unspecified ankle and foot; M51.37 Other intervertebral disc degeneration, lumbosacral region; M06.9 Rheumatoid arthritis, unspecified; M48.00 Spinal stenosis, site unspecified; M10.9 Gout, unspecified; F41.1 Generalized anxiety disorder; F43.10 Post-traumatic stress disorder, unspecified; F17.290 Nicotine dependence, other tobacco product, uncomplicated; F10.20 Alcohol dependence, uncomplicated; Z79.4 Long term (current) use of insulin; Z96.641 Presence of right artificial hip joint ==

== ENCOUNTER → 2020-08-07 | Outpatient (CLI) | payer OTHER | LOC: HYPER 07:56 | PROVIDERS: ATTEND Specialist | DX: E11.621 Type 2 diabetes mellitus with foot ulcer (principal); L97.512 Non-pressure chronic ulcer of other part of right foot with fat layer exposed; E11.610 Type 2 diabetes mellitus with diabetic neuropathic arthropathy; E11.40 Type 2 diabetes mellitus with diabetic neuropathy, unspecified; M54.5 Low back pain; M19.079 Primary osteoarthritis, unspecified ankle and foot; L84 Corns and callosities; M06.9 Rheumatoid arthritis, unspecified; L40.50 Arthropathic psoriasis, unspecified; M51.37 Other intervertebral disc degeneration, lumbosacral region; D69.6 Thrombocytopenia, unspecified; K58.9 Irritable bowel syndrome, unspecified; E78.5 Hyperlipidemia, unspecified; M48.00 Spinal stenosis, site unspecified; J44.9 Chronic obstructive pulmonary disease, unspecified; K21.9 Gastro-esophageal reflux disease without esophagitis; M10.9 Gout, unspecified; F17.200 Nicotine dependence, unspecified, uncomplicated; F10.20 Alcohol dependence, uncomplicated; F41.1 Generalized anxiety disorder; F43.10 Post-traumatic stress disorder, unspecified; Z79.4 Long term (current) use of insulin; Z79.899 Other long term (current) drug therapy ==

== ENCOUNTER → 2020-08-28 | Outpatient (CLI) | payer OTHER | LOC: HYPER 08:00 | PROVIDERS: ATTEND Specialist | DX: E11.621 Type 2 diabetes mellitus with foot ulcer (principal); L97.512 Non-pressure chronic ulcer of other part of right foot with fat layer exposed; E11.610 Type 2 diabetes mellitus with diabetic neuropathic arthropathy; E11.40 Type 2 diabetes mellitus with diabetic neuropathy, unspecified; M54.5 Low back pain; M19.079 Primary osteoarthritis, unspecified ankle and foot; L84 Corns and callosities; L40.50 Arthropathic psoriasis, unspecified; M51.37 Other intervertebral disc degeneration, lumbosacral region; D69.6 Thrombocytopenia, unspecified; K58.9 Irritable bowel syndrome, unspecified; E78.5 Hyperlipidemia, unspecified; J44.9 Chronic obstructive pulmonary disease, unspecified; K21.9 Gastro-esophageal reflux disease without esophagitis; M48.00 Spinal stenosis, site unspecified; M06.9 Rheumatoid arthritis, unspecified; M10.9 Gout, unspecified; F17.200 Nicotine dependence, unspecified, uncomplicated; F10.20 Alcohol dependence, uncomplicated; F41.1 Generalized anxiety disorder; F43.10 Post-traumatic stress disorder, unspecified; Z79.4 Long term (current) use of insulin ==

== ENCOUNTER → 2020-09-25 | Outpatient (CLI) | payer OTHER | LOC: HYPER 07:41 | PROVIDERS: ATTEND Specialist | DX: E11.621 Type 2 diabetes mellitus with foot ulcer (principal); L97.412 Non-pressure chronic ulcer of right heel and midfoot with fat layer exposed; L08.9 Local infection of the skin and subcutaneous tissue, unspecified; E11.610 Type 2 diabetes mellitus with diabetic neuropathic arthropathy; E11.40 Type 2 diabetes mellitus with diabetic neuropathy, unspecified; M54.5 Low back pain; M19.079 Primary osteoarthritis, unspecified ankle and foot; L84 Corns and callosities; L40.50 Arthropathic psoriasis, unspecified; M51.37 Other intervertebral disc degeneration, lumbosacral region; D69.6 Thrombocytopenia, unspecified; K58.9 Irritable bowel syndrome, unspecified; E78.5 Hyperlipidemia, unspecified; J44.9 Chronic obstructive pulmonary disease, unspecified; K21.9 Gastro-esophageal reflux disease without esophagitis; M48.00 Spinal stenosis, site unspecified; M06.9 Rheumatoid arthritis, unspecified; M10.9 Gout, unspecified; F17.200 Nicotine dependence, unspecified, uncomplicated; F10.20 Alcohol dependence, uncomplicated; F41.1 Generalized anxiety disorder; F43.10 Post-traumatic stress disorder, unspecified; Z79.4 Long term (current) use of insulin ==

== ENCOUNTER → 2020-10-09 | Outpatient (CLI) | payer OTHER | LOC: HYPER 07:59 | PROVIDERS: ATTEND Specialist | DX: E11.621 Type 2 diabetes mellitus with foot ulcer (principal); L97.412 Non-pressure chronic ulcer of right heel and midfoot with fat layer exposed; L97.521 Non-pressure chronic ulcer of other part of left foot limited to breakdown of skin; L84 Corns and callosities; L08.9 Local infection of the skin and subcutaneous tissue, unspecified; L40.50 Arthropathic psoriasis, unspecified; E11.610 Type 2 diabetes mellitus with diabetic neuropathic arthropathy; E11.40 Type 2 diabetes mellitus with diabetic neuropathy, unspecified; D69.6 Thrombocytopenia, unspecified; E78.5 Hyperlipidemia, unspecified; J44.9 Chronic obstructive pulmonary disease, unspecified; K58.9 Irritable bowel syndrome, unspecified; K21.9 Gastro-esophageal reflux disease without esophagitis; M54.5 Low back pain; M19.079 Primary osteoarthritis, unspecified ankle and foot; M51.37 Other intervertebral disc degeneration, lumbosacral region; M48.00 Spinal stenosis, site unspecified; M06.9 Rheumatoid arthritis, unspecified; M10.9 Gout, unspecified; F17.200 Nicotine dependence, unspecified, uncomplicated; F10.20 Alcohol dependence, uncomplicated; F41.1 Generalized anxiety disorder; F43.10 Post-traumatic stress disorder, unspecified; Z79.4 Long term (current) use of insulin ==

== ENCOUNTER → 2020-10-30 | Outpatient (CLI) | payer MEDICARE, OTHER | LOC: HYPER 07:53 | PROVIDERS: ATTEND Specialist | DX: E11.621 Type 2 diabetes mellitus with foot ulcer (principal); L97.412 Non-pressure chronic ulcer of right heel and midfoot with fat layer exposed; L97.521 Non-pressure chronic ulcer of other part of left foot limited to breakdown of skin; L84 Corns and callosities; L08.9 Local infection of the skin and subcutaneous tissue, unspecified; L40.50 Arthropathic psoriasis, unspecified; E11.610 Type 2 diabetes mellitus with diabetic neuropathic arthropathy; E11.40 Type 2 diabetes mellitus with diabetic neuropathy, unspecified; D69.6 Thrombocytopenia, unspecified; E78.5 Hyperlipidemia, unspecified; J44.9 Chronic obstructive pulmonary disease, unspecified; K58.9 Irritable bowel syndrome, unspecified; K21.9 Gastro-esophageal reflux disease without esophagitis; M54.5 Low back pain; M19.079 Primary osteoarthritis, unspecified ankle and foot; M51.37 Other intervertebral disc degeneration, lumbosacral region; M48.00 Spinal stenosis, site unspecified; M06.9 Rheumatoid arthritis, unspecified; M10.9 Gout, unspecified; F17.200 Nicotine dependence, unspecified, uncomplicated; F10.20 Alcohol dependence, uncomplicated; F41.1 Generalized anxiety disorder; F43.10 Post-traumatic stress disorder, unspecified; Z79.4 Long term (current) use of insulin ==

== ENCOUNTER → 2020-11-13 | Outpatient (CLI) | payer MEDICARE, OTHER | LOC: HYPER 08:03 | PROVIDERS: ATTEND Specialist | DX: E11.621 Type 2 diabetes mellitus with foot ulcer (principal); L97.412 Non-pressure chronic ulcer of right heel and midfoot with fat layer exposed; L97.521 Non-pressure chronic ulcer of other part of left foot limited to breakdown of skin; L84 Corns and callosities; L08.9 Local infection of the skin and subcutaneous tissue, unspecified; L40.50 Arthropathic psoriasis, unspecified; E11.610 Type 2 diabetes mellitus with diabetic neuropathic arthropathy; E11.40 Type 2 diabetes mellitus with diabetic neuropathy, unspecified; D69.6 Thrombocytopenia, unspecified; E78.5 Hyperlipidemia, unspecified; J44.9 Chronic obstructive pulmonary disease, unspecified; K58.9 Irritable bowel syndrome, unspecified; K21.9 Gastro-esophageal reflux disease without esophagitis; M54.5 Low back pain; M19.079 Primary osteoarthritis, unspecified ankle and foot; M51.37 Other intervertebral disc degeneration, lumbosacral region; M48.00 Spinal stenosis, site unspecified; M06.9 Rheumatoid arthritis, unspecified; M10.9 Gout, unspecified; F17.200 Nicotine dependence, unspecified, uncomplicated; F10.20 Alcohol dependence, uncomplicated; F41.1 Generalized anxiety disorder; F43.10 Post-traumatic stress disorder, unspecified; Z79.4 Long term (current) use of insulin ==

== ENCOUNTER → 2020-11-27 | Outpatient (CLI) | payer OTHER | LOC: HYPER 07:44 | PROVIDERS: ATTEND Specialist | DX: E11.621 Type 2 diabetes mellitus with foot ulcer (principal); L97.412 Non-pressure chronic ulcer of right heel and midfoot with fat layer exposed; L97.521 Non-pressure chronic ulcer of other part of left foot limited to breakdown of skin; L84 Corns and callosities; L08.9 Local infection of the skin and subcutaneous tissue, unspecified; L40.50 Arthropathic psoriasis, unspecified; L23.7 Allergic contact dermatitis due to plants, except food; R21 Rash and other nonspecific skin eruption; B36.9 Superficial mycosis, unspecified; E11.610 Type 2 diabetes mellitus with diabetic neuropathic arthropathy; E11.40 Type 2 diabetes mellitus with diabetic neuropathy, unspecified; D69.6 Thrombocytopenia, unspecified; E78.5 Hyperlipidemia, unspecified; J44.9 Chronic obstructive pulmonary disease, unspecified; K58.9 Irritable bowel syndrome, unspecified; K21.9 Gastro-esophageal reflux disease without esophagitis; M54.50 Low back pain, unspecified; M19.079 Primary osteoarthritis, unspecified ankle and foot; M51.37 Other intervertebral disc degeneration, lumbosacral region; M48.00 Spinal stenosis, site unspecified; M06.9 Rheumatoid arthritis, unspecified; M10.9 Gout, unspecified; F17.200 Nicotine dependence, unspecified, uncomplicated; F10.20 Alcohol dependence, uncomplicated; F41.1 Generalized anxiety disorder; F43.10 Post-traumatic stress disorder, unspecified; Z79.4 Long term (current) use of insulin ==

== ENCOUNTER → 2021-01-08 | Outpatient (CLI) | payer OTHER | LOC: HYPER 09:55 | PROVIDERS: ATTEND Specialist | DX: E11.621 Type 2 diabetes mellitus with foot ulcer (principal); L97.512 Non-pressure chronic ulcer of other part of right foot with fat layer exposed; E11.610 Type 2 diabetes mellitus with diabetic neuropathic arthropathy; E11.40 Type 2 diabetes mellitus with diabetic neuropathy, unspecified; L08.9 Local infection of the skin and subcutaneous tissue, unspecified; M54.50 Low back pain, unspecified; M19.079 Primary osteoarthritis, unspecified ankle and foot; R21 Rash and other nonspecific skin eruption; L23.7 Allergic contact dermatitis due to plants, except food; B36.9 Superficial mycosis, unspecified; L84 Corns and callosities; M06.9 Rheumatoid arthritis, unspecified; L40.50 Arthropathic psoriasis, unspecified; M51.37 Other intervertebral disc degeneration, lumbosacral region; D69.6 Thrombocytopenia, unspecified; K58.9 Irritable bowel syndrome, unspecified; E78.5 Hyperlipidemia, unspecified; J44.9 Chronic obstructive pulmonary disease, unspecified; K21.9 Gastro-esophageal reflux disease without esophagitis; M10.9 Gout, unspecified; F41.1 Generalized anxiety disorder; F17.200 Nicotine dependence, unspecified, uncomplicated; F43.10 Post-traumatic stress disorder, unspecified; F10.20 Alcohol dependence, uncomplicated ==

== ENCOUNTER → 2021-03-04 | Outpatient (CLI) | payer MEDICARE, OTHER | LOC: HYPER 08:15 | PROVIDERS: ATTEND Emergency Medicine | DX: E11.621 Type 2 diabetes mellitus with foot ulcer (principal); L97.411 Non-pressure chronic ulcer of right heel and midfoot limited to breakdown of skin; L97.512 Non-pressure chronic ulcer of other part of right foot with fat layer exposed; E11.40 Type 2 diabetes mellitus with diabetic neuropathy, unspecified; E11.610 Type 2 diabetes mellitus with diabetic neuropathic arthropathy; L08.9 Local infection of the skin and subcutaneous tissue, unspecified; L84 Corns and callosities; M54.50 Low back pain, unspecified; M19.079 Primary osteoarthritis, unspecified ankle and foot; R21 Rash and other nonspecific skin eruption; L23.7 Allergic contact dermatitis due to plants, except food; B36.9 Superficial mycosis, unspecified; M06.9 Rheumatoid arthritis, unspecified; L40.50 Arthropathic psoriasis, unspecified; M51.37 Other intervertebral disc degeneration, lumbosacral region; D69.6 Thrombocytopenia, unspecified; K58.9 Irritable bowel syndrome, unspecified; E78.5 Hyperlipidemia, unspecified; M48.00 Spinal stenosis, site unspecified; J44.9 Chronic obstructive pulmonary disease, unspecified; F41.1 Generalized anxiety disorder; F17.200 Nicotine dependence, unspecified, uncomplicated; F43.10 Post-traumatic stress disorder, unspecified; Z79.4 Long term (current) use of insulin; Z79.899 Other long term (current) drug therapy ==